=== PATIENT | female | born 1975 | race Caucasian/White ===

== ENCOUNTER 2019-06-26 09:48 | Emergency (ER) | payer SELFPAY ==
[2019-06-26 10:26] LABS: Urine Blood 2+ (NEG); Urine Glucose NEGATIVE (NEG); Urine Protein NEGATIVE (NEG); Urine Specific Gravity 1.025 (1.005-1.030); Urine pH 5.5 (5.0-7.0)
[2019-06-26 10:50] LABS: Urine Bacteria >50 /HPF (<20); Urine Culture Reflex Order REFLEXED
--- NOTE | 2019-06-26 11:02 | ER ---
Nurse's Notes [facility] Name: Carine Page Age: 44 yrs Sex: Female : 1975 Arrival Date: 06/26/2019 Time: 09:50 Bed 4 Private MD: Diagnosis: Acute cystitis;Sacroiliitis, not elsewhere classified;Low back pain Presentation: 06/26 09:58 Presenting complaint: Right hip pain that radiates to right leg x 2 months, urinary hb frequency x 2 days. Denies injury/fever. Transition of care: patient was not received from another setting of care. Onset of symptoms was June 26, 2019. Risk Assessment: Do you want to hurt yourself or someone else? Patient reports no desire to harm self or others. Initial Sepsis Screen: Does the patient meet any 2 criteria? No. Patient's initial sepsis screen is negative. Care prior to arrival: None. 09:58 Method Of Arrival: Ambulatory hb 09:58 Acuity: MINDA 4 hb 11:09 Initial Sepsis Screen: Does the patient have a suspected source of infection? No. ch Patient's initial sepsis screen is negative. 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 - Social history:: Smoking status: Patient/guardian denies using tobacco. - Ebola Screening: : No symptoms or risks identified at this time. Screenin:00 Abuse screen: Denies threats or abuse. Denies injuries from another. Nutritional hb screening: No deficits noted. Tuberculosis screening: No symptoms or risk factors identified. Fall Risk None identified. Assessment: 10:08 General: Appears in no apparent distress. uncomfortable, Behavior is cooperative, ch appropriate for age. Pain: Complains of pain in low back area, right gluteus meg, right hamstring and posterior aspect of right knee Pain currently is 8 out of 10 on a pain scale. Respiratory: No deficits noted. 10:16 Neuro: No deficits noted. Cardiovascular: No deficits noted. : Reports pain in lower back urgency, urinary frequency. Derm: Skin is pink, warm \T\ dry. Musculoskeletal: Capillary refill < 3 seconds, in bilateral fingers. toes. Range of motion: intact in all extremities, Swelling absent Reports pain in right leg and buttocks and low back area and right gluteus meg. 11:08 Reassessment: Patient appears in no apparent distress at this time. Patient and/or ch family updated on plan of care and expected duration. Pain level reassessed. Patient is alert, oriented x 3, equal unlabored respirations, skin warm/dry/pink. Patient states feeling better. Patient states symptoms have improved. Vital Signs: 09:59 BP 119 / 79; Pulse 84; Resp 16; Temp 98.8; Pulse Ox 100% ; Weight 79.38 kg; Height 5 hb ft. 4 in. (162.56 cm); Pain 6/10; 11:08 BP 123 / 78; Pulse 67; Resp 14; Temp 98.1; Pulse Ox 100% on R/A; Pain 2/10; ch 09:59 Body Mass Index 30.04 (79.38 kg, 162.56 cm) hb ED Course: 09:50 Patient arrived in ED. mr 09:51 Abel Ramírez MD is Attending Physician. ps1 09:59 Triage completed. hb 09:59 Arm band placed on. hb 10:08 Mackenzie Trotter, HOSSEIN is Primary Nurse. ch 10:08 No apparent distress. Resting quietly. ch 10:08 Patient has correct armband on for positive identification. Placed in gown. Bed in low ch position. Call light in reach. Side rails up X 1. 10:08 Urine collected: clean catch specimen. ch 10:16 Warm blanket given. ch 10:16 No provider procedures requiring assistance completed. ch 10:45 Chaperoned ERD during physical assessment. Physician remains clinical. jl7 11:08 Patient did not have IV access during this emergency room visit. ch Administered Medications: No medications were administered Outcome: 11:01 Discharge ordered by . ps1 11:08 Discharged to home ambulatory, with family. ch 11:08 Condition: improved 11:08 Discharge instructions given to patient, family, Instructed on discharge instructions, follow up and referral plans. medication usage, Demonstrated understanding of instructions, follow-up care, medications, Prescriptions given X 3. 11:09 Patient left the ED. Addendum: 06/30/2019 16:55 Addendum: Culture Results: Positive urine culture. Bacteria is resistant to, has i w intermediate sensitivity, or is not tested against prescribed antibiotics. 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 Phone call Attempt #1 pt did not answer, left voice mail. Signatures: Mackenzie Trotter, RN HOSSEIN Vargas, Elizabeth adhikari Zahida Morataya RN RN iw Mercedez Diaz RN RN Jose Alberto Lawson RN RN jl7 Abel Ramírez MD MD ps1
--- NOTE | 2019-06-26 11:02 | EDPHYS ---
Physician Documentation [facility] Name: Carine Page Age: 44 yrs Sex: Female : 1975 Arrival Date: 06/26/2019 Time: 09:50 Bed 4 Private MD: ED Physician Abel Ramírez HPI: 06/26 10:49 This 44 yrs old Female presents to ER via Ambulatory with complaints of Hip ps1 Pain. 10:49 patient states that her pain is localized to the right hip at the sacroiliac joint. ps1 Pain radiates down the right leg. Atraumatic pain. Onset was 2 months ago. Has had no urinary retention or overflow incontinence. Has had frequency and believes that she may have a UTI. Pain is moderate. No FND. . 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 - Social history:: Smoking status: Patient/guardian denies using tobacco. - Ebola Screening: : No symptoms or risks identified at this time. ROS: 10:53 Constitutional: Negative for fever, chills, and weight loss, Eyes: Negative for injury, ps1 pain, redness, and discharge, Cardiovascular: Negative for chest pain, palpitations, and edema, Respiratory: Negative for shortness of breath, cough, wheezing, and pleuritic chest pain, Abdomen/GI: Negative for abdominal pain, nausea, vomiting, diarrhea, and constipation, MS/Extremity: Negative for injury and deformity, Skin: Negative for injury, rash, and discoloration. 10:53 Back: Positive for pain with movement. 10:53 : Positive for urinary frequency, burning with urination. Exam: 10:53 Constitutional: This is a well developed, well nourished patient who is awake, alert, ps1 and in no acute distress. Head/Face: Normocephalic, atraumatic. Eyes: Pupils equal round and reactive to light, extra-ocular motions intact. Lids and lashes normal. Conjunctiva and sclera are non-icteric and not injected. Chest/axilla: Normal chest wall appearance and motion. Nontender with no deformity. No lesions are appreciated. Cardiovascular: Regular rate and rhythm. No gallops, murmurs, or rubs. Normal PMI, no JVD. No pulse deficits. Respiratory: Lungs have equal breath sounds bilaterally, clear to auscultation and percussion. No rales, rhonchi or wheezes noted. No increased work of breathing, no retractions or nasal flaring. Abdomen/GI: Soft, non-tender, with normal bowel sounds. No distension or tympany. No guarding or rebound. No evidence of tenderness throughout. MS/ Extremity: Pulses equal, no cyanosis. Neurovascular intact. Full, normal range of motion. Neuro: Awake and alert, GCS 15, oriented to person, place, time, and situation. Cranial nerves II-XII grossly intact. Sensory grossly intact. 10:53 Back: pain, that is moderate, of the right mid back and right low back, lordosis, muscle spasm, is appreciated in the right mid back and right low back. Vital Signs: 09:59 BP 119 / 79; Pulse 84; Resp 16; Temp 98.8; Pulse Ox 100% ; Weight 79.38 kg; Height 5 hb ft. 4 in. (162.56 cm); Pain 6/10; 11:08 BP 123 / 78; Pulse 67; Resp 14; Temp 98.1; Pulse Ox 100% on R/A; Pain 2/10; ch 09:59 Body Mass Index 30.04 (79.38 kg, 162.56 cm) hb Procedures: 10:53 Performed Osteopathic manipulation. Patient was evaluated in seated and prone position. ps1 Patient had SI joint dysfunction with compensatory changes in lumbar and thoracic spine. Anteriorly rotated right hip. L3-5SLRR. T7-9SRRL. HVLA performed with resolution of symptoms. . MDM: 10:06 Patient medically screened. ps1 11:02 Data reviewed: vital signs, nurses notes, lab test result(s), and as a result, I will ps1 discharge patient. Counseling: I had a detailed discussion with the patient and/or guardian regarding: the historical points, exam findings, and any diagnostic results supporting the discharge/admit diagnosis, lab results, the need for outpatient follow up, to return to the emergency department if symptoms worsen or persist or if there are any questions or concerns that arise at home. 06/26 10:17 Order name: Urine --Ancillary (enter results); Complete Time: 10:30 hb 06/26 10:17 Order name: Urine Dipstick--Ancillary (enter results); Complete Time: 10:30 hb 06/26 10:18 Order name: Urine Microscopic Only; Complete Time: 10:59 hb 06/26 10:55 Order name: Urine Culture EDMS Administered Medications: No medications were administered Disposition: 06/26/19 11:01 Discharged to Home. Impression: Acute cystitis, Sacroiliitis, not elsewhere classified, Low back pain. - Condition is Stable. - Discharge Instructions: Musculoskeletal Pain, Urinary Tract Infection, Adult. - Prescriptions for Anaprox DS 550 mg Oral Tablet - take 1 tablet by ORAL route every 12 hours As needed; 20 tablet. Keflex 500 mg Oral Capsule - take 1 capsule by ORAL route every 8 hours for 10 days; 30 capsule. Robaxin 500 mg Oral Tablet - take 2 tablet by ORAL route every 6 hours As needed; 40 tablet. - Medication Reconciliation Form, Thank You Letter, Antibiotic Education, Prescription Opioid Use form. - Follow up: Emergency Department; When: As needed; Reason: Fever > 102 F, Trouble breathing, Worsening of condition. Follow up: Private Physician; When: 1 week; Reason: Further diagnostic work-up, Recheck today's complaints, Continuance of care, Re-evaluation by your physician. - Problem is new. - Symptoms have improved. Signatures: Dispatcher [employer] EDNJ Mackenzie Trotter RN RN ch Baxter, Heather, RN RN Abel Ramírez MD MD ps1 Corrections: (The following items were deleted from the chart) 11:09 11:01 06/26/2019 11:01 Discharged to Home. Impression: Acute cystitis; Sacroiliitis, ch not elsewhere classified; Low back pain. Condition is Stable. Forms are Medication Reconciliation Form, Thank You Letter, Antibiotic Education, Prescription Opioid Use. Follow up: Emergency Department; When: As needed; Reason: Fever > 102 F, Trouble breathing, Worsening of condition. Follow up: Private Physician; When: 1 week; Reason: Further diagnostic work-up, Recheck today's complaints, Continuance of care, Re-evaluation by your physician. Problem is new. Symptoms have improved. ps1
[2019-06-26 11:22] VITALS: O2SAT 100
[2019-06-26 11:23] VITALS: BP 123/78; TEMP 98.1
== END 2019-06-26 11:09 | disposition home or self-care (01) ==
LOC: ER 09:48
PROC: 7W0 Osteopathic, Anatomical Regions, Treatment (ICD-10-PCS; principal; 2019-06-26)
PROC: 7W02X3Z Osteopathic Treatment of Thoracic Region using High Velocity-Low Amplitude Forces (ICD-10-PCS; 2019-06-26)
DX: M46.1 Sacroiliitis, not elsewhere classified (principal); N30.00 Acute cystitis without hematuria; M54.5 Low back pain
CPT/HCPCS: 81003; 81015; 81025; 87077; 87086; 87088; 87186; 99283